=== PATIENT | male | born 1960 | race Caucasian/White ===

== ENCOUNTER 2016-11-04 05:53 | Day surgery (SDC) | payer OTHER ==
[~2016-11-04] VITALS: Ht 180.3 cm; Wt 161.4 kg
[2016-11-04] MEDS ORDERED: SODIUM CHLORIDE 0.9% 1,000 ML IV ONE ×2 (06:01→07:00)
[2016-11-04 07:02] LABS: GLUCOSE COMMENT 1 Doctor Notified; GLUCOSE,POINT OF CARE 187 MG/DL (70-110)
[2016-11-04] MEDS ORDERED: LOVA10TA2 PO (07:31)
[2016-11-04] MEDS ORDERED: BENA5TAB3 PO (07:31)
[2016-11-04] MEDS ORDERED: INSU100C6 SQ (07:31)
[2016-11-04] MEDS ORDERED: ASPI-1061 PO (07:31)
[2016-11-04] MEDS ORDERED: TRAZ-144 PO (07:31)
[2016-11-04] MEDS ORDERED: INSLAN SQ (07:31)
[2016-11-04] MEDS ORDERED: CARV6.2579 PO (07:31)
[2016-11-04] MEDS ORDERED: PROPOFOL 1% 20 ML VIAL IVP ONE (12:00)
== END 2016-11-04 08:50 | disposition home or self-care (01) ==
LOC: SURGERY 05:53
PROVIDERS: ATTEND Specialist
DX: K29.50 Unspecified chronic gastritis without bleeding (principal); T18.2XXA Foreign body in stomach, initial encounter; E11.43 Type 2 diabetes mellitus with diabetic autonomic (poly)neuropathy; K31.84 Gastroparesis; D50.9 Iron deficiency anemia, unspecified; I25.10 Atherosclerotic heart disease of native coronary artery without angina pectoris; G89.29 Other chronic pain; M54.5 Low back pain; E66.01 Morbid (severe) obesity due to excess calories; Z98.61 Coronary angioplasty status; Z96.89 Presence of other specified functional implants; X58.XXXA Exposure to other specified factors, initial encounter; Y93.9 Activity, unspecified; Y92.9 Unspecified place or not applicable
CPT/HCPCS: 43239; 82962; 88305; 88312; C1769; J2704; J7030